=== PATIENT | female | born 1970 | race Caucasian/White ===

== ENCOUNTER 2022-07-31 10:53 | Outpatient (OUT) | payer OTHER, SELFPAY ==
[2022-08-02 14:10] LABS: Anti-CCP Ab, IgG/IgA 5 units (0-19); Rheumatoid Factor (RF) 11.1 IU/mL (<14.0)
[2022-08-04 16:09] LABS: Histoplasma Gal'mannan Ag Ur <0.5 (<0.5 ng/mL)
[2022-12-18 15:02] LABS: QuantiFERON-TB Gold Plus NEGATIVE
== END 2022-07-31 10:54 | disposition home or self-care (01) ==
LOC: LAB 11:01
PROVIDERS: Visit Provider Internal Medicine
DX: R91.8 Other nonspecific abnormal finding of lung field (principal)
CPT/HCPCS: 36415; 86200; 86431; 86480; 86606; 86612; 86635; 86698; 87385

== ENCOUNTER 2022-08-04 14:31 | Outpatient (OUT) | payer OTHER, SELFPAY ==
--- NOTE | 2022-08-04 15:14 | XR_ITS ---
The [address] [address] Patient Name: CHANCE SANCHEZ MRN: [id number] date: 1970 Sex: F Assigned Patient Location: [facility] Current Patient Location: [facility] Accession/Order Number: [id number] Exam Date: 08/04/2022 15:27 Report Date: 08/04/2022 16:15 At the request of: JOSE F BRANDON Procedure: XR chest 2V EXAM: XR chest 2V HISTORY: marijuana use . Chest tightness. COMPARISON: None. TECHNIQUE: Upright PA and lateral chest x-ray FINDINGS: The heart is not enlarged and the vasculature is not distended. A mass is seen in the right upper lung measuring at least 3.5 cm in maximum dimension. Bullous emphysema is seen throughout the chest without evidence of a focal infiltrate, effusion or pneumothorax. The osseous structures are grossly intact. IMPRESSION: No acute infiltrate or evidence of cardiac decompensation. Chronic changes are present. A mass is seen in the right upper lung. The patient had a CT study 07/22/2022 which also demonstrated a large mass compatible with a malignancy. Direct comparison with a previous chest x-ray may be helpful in confirming the chronicity of these findings. Electronically authenticated by: MCKENNA LUA Date: 08/04/2022 16:15
== END 2022-08-04 14:32 | disposition home or self-care (01) ==
LOC: PST 14:31
PROVIDERS: Visit Provider Internal Medicine
DX: Z01.811 Encounter for preprocedural respiratory examination (principal); R91.8 Other nonspecific abnormal finding of lung field; F12.90 Cannabis use, unspecified, uncomplicated
CPT/HCPCS: 71046

== ENCOUNTER 2022-09-04 13:40 | Outpatient (OUT) | payer OTHER, SELFPAY | END 2022-09-04 13:41 | disposition home or self-care (01) | LOC: PST 13:41 | PROVIDERS: Visit Provider Internal Medicine | DX: Z01.818 Encounter for other preprocedural examination (principal); R91.8 Other nonspecific abnormal finding of lung field ==

== ENCOUNTER 2022-09-08 11:41 | Day surgery (SDC) | payer OTHER, SELFPAY ==
[2022-09-08] VITALS (12 sets, daily range): BP systolic 71–119; BP diastolic 45–69; PULSE 62–83; RESP 14–32; TEMP 36.3–36.6; O2SAT 93–99; BMI 16.0
--- NOTE | 2022-09-08 | XR_ITS ---
[address] [address] Patient Name: CHANCE SANCHEZ MRN: [id number] date: 1970 Sex: F Assigned Patient Location: [facility] Current Patient Location: [facility] Accession/Order Number: [id number] Exam Date: 09/08/2022 14:40 Report Date: 09/08/2022 14:58 At the request of: JOSE F BRANDON Procedure: XR chest 1V EXAMINATION: XR chest 1V HISTORY: POST OP COMPARISON: XR chest 08/04/2022 FINDINGS: LUNGS: 5.3 cm mass within medial right upper lobe. Well-expanded lungs with mild opacities throughout the mid and lower right lung and within left lung base, along with vascular prominence. VASCULATURE: No significant cephalization. PLEURA: No pneumothorax, effusion, or pleural thickening. CARDIAC: No cardiomegaly or cardiac silhouette abnormality. MEDIASTINUM: No visible mass or adenopathy. BONES: No fracture or visible bone lesion. OTHER: Negative. XR/XR chest 1V IMPRESSION: 1. Increase in size of right upper lobe mass; interval growth versus surrounding edema post procedure. 2. Moderate right mid and lower lung and mild left lower lung infectious infiltrates versus pulmonary edema; new since prior study. 3. No pneumothorax. Electronically authenticated by: LILLIE DAI Date: 09/08/2022 14:58
[2022-09-08] MEDS: LACTATED RINGER'S SOLUTION 1,000 ML 50 ML IV (12:43)
--- NOTE | 2022-09-08 12:45 | P.ON_ITS ---
Date of procedure: 09/08/22 Pre-op diagnosis: Right upper lobe mass on CT chest Post-op diagnosis: same Procedure: Procedure: Diagnostic flexible bronchoscopy with bronchoalveolar lavage and transbronchial biopsies performed under fluorscopic guidance. Description: Informed consent was obtained after risks, benefits, and alternatives were discussed with the patient.? Time out was initiated to confirm the correct patient, site, and procedure with all present voicing in the affirmative. Patient was brought to the operating room suite where noninvasive monitoring was utilized.? Sedation & anesthesia were administered by the anesthesia department- please refer to their records for further information.? Tape was placed over the patient's eyes to prevent spillage of secretions.? An 8.5 endotracheal airway was placed by anesthesia. Due to placement of the endotracheal tube, the laryngeal and proximal 2/3 of the trachea were unable to be visualized. The bronchoscope was inserted into the endotracheal tube and advanced until the the distal trachea was reached. 5mL of 1% lidocaine were instilled topically to the main juan.? The main juan was sharp without splaying or evidence of underlying mass. The bronchoscope was then advanced through the right main bronchus to the right upper lobe, where the apical, posterior, and anterior segments were visualized.? The bronchoscope was advanced through the bronchus intermedius to the right middle lobe or the medial and lateral segments visualized.? The bronchoscope was then advanced to the right lower lobe superior, medial, anterior, lateral, and posterior basilar segments.? No endobronchial lesions, exudate, or other abnormalities were noted. The bronchoscope was retracted to the main juan and advanced through the left main bronchus to the left upper lobe where the upper division apicoposterior and anterior, as well as lingular superior and inferior segments were visualized.? The bronchoscope was then advanced into the left lower lobe where the superior, anteromedial, lateral, and posterior basilar segments visualized.? No endobronchial lesions, exudate, or other abnormalities were noted. Next, the bronchoscope was wedged into the right upper lobe and a bronchoalveolar lavage was obtained. After this, under fluoroscopic guidance, 4 transbronchial biopsies were obtained from a posterior subsegmental bronchus of the apical segment. Specimens were dark brown/black in appearance. Further attempts at obtaining biopsies were aborted due to difficulty positioning the scope with the biopsy forceps - it was felt that the risk of pneumothorax and extended time in the airway outweighed the benefits of obtaining 1-2 additional biopsy specimens. There was a mild amount of bleeding, with hemostasis spontaneously achieved without further intervention on my part. The bronchoscope was removed. The patient tolerated the procedure well. The patient's significant other was updated on the patient's status. A post- operative chest x-ray was obtained due to the transbronchial biopsies and underlying upper-lobe predominant emphysema. No iatrogenic pneumothorax was identified on this imaging. Anesthesia: GETA Surgeon: Marcos Nagy Estimated blood loss (mL): 1 Pathology: other (Transbronchial biopsies and bronchoalveolar lavage obtained from the apical segment of the right upper lobe) Condition: stable Disposition: same day
== END 2022-09-08 15:00 | disposition home or self-care (01) ==
PROVIDERS: Visit Provider Internal Medicine
PROC: (CPT 31624; principal; 2022-09-08 13:00)
DX: C34.11 Malignant neoplasm of upper lobe, right bronchus or lung (principal); F31.9 Bipolar disorder, unspecified; J43.2 Centrilobular emphysema; K21.9 Gastro-esophageal reflux disease without esophagitis; F41.9 Anxiety disorder, unspecified; B19.20 Unspecified viral hepatitis C without hepatic coma; F17.210 Nicotine dependence, cigarettes, uncomplicated; Z86.16 Personal history of COVID-19; I25.10 Atherosclerotic heart disease of native coronary artery without angina pectoris; Z90.710 Acquired absence of both cervix and uterus; Z79.899 Other long term (current) drug therapy; Z79.82 Long term (current) use of aspirin; B40.9 Blastomycosis, unspecified; R79.9 Abnormal finding of blood chemistry, unspecified; R63.6 Underweight; Z68.1 Body mass index [BMI] 19.9 or less, adult
CPT/HCPCS: 31624; 31628; 71045; 76000; 87070; 88305; 88341; 88342; 99999; J2704